=== PATIENT | female | born 1970 | race Caucasian/White ===

== ENCOUNTER → 2017-08-29 | Outpatient (CLI) | payer MEDICARE ==
[2017-08-29] MEDS: BARIUM SULFATE 60% 355 ML SUSP PO (08:45)
[2017-08-29] MEDS: SINCALIDE 1.95 MCG in IV NORMAL SALINE 50ML 30 ML IV (10:16)
== END | disposition home or self-care (01) ==
LOC: US 07:39
DX: R10.84 Generalized abdominal pain (principal); R11.2 Nausea with vomiting, unspecified; E78.5 Hyperlipidemia, unspecified; E03.9 Hypothyroidism, unspecified; G43.909 Migraine, unspecified, not intractable, without status migrainosus
CPT/HCPCS: 74250; 76700; 78226; 96374; 96375; A9537; J2805

== ENCOUNTER → 2020-05-03 | Outpatient (CLI) | payer MEDICARE ==
[2017-08-17 11:00] VITALS: BP 140/85
[~2020-05-03] MED LIST: AMOX500C PO; ASPI-482 PO; ATOR20TA58 PO; CELE200C PO; DICY10CA3 PO; FURO40TA4 PO; GABA800T5 PO; HALO10TA PO; HYDR-2767 PO; IOHEXOL 180 MG/ML 10 ML VIAL. ONE; L-NO1TBD6 PO; LACT1CAP6 PO; LEVO175T2 PO; LINZESS145 MCG PO; METR-34 PO; MONT10TA49 PO; NADO40TA2 PO; OMEP40CA45 PO; PANT20TA2 PO; PHEN37.5 PO; PHEN37.53 PO; QUET100T4 PO; TIZA4CAP PO; TRAM50TA PO; methylPREDNISolone ACETATE 40 MG/ML VIAL. ONE; methylPREDNISolone ACETATE 80 MG/ML VIAL. ONE
--- NOTE | 2020-05-03 12:39 | PDOC1 ---
INITIAL PAIN CONSULT DATE OF SERVICE: DOS: DATE: 05/03/20 TIME: 12:32 CHIEF COMPLAINT: Chief Complaint: Low back and right lower extremity pain HISTORY OF PRESENT ILLNESS: 49-year-old female presents with history of pain low back right lower extremity for about 16 years not the result of any specific injury or accident at that time but was helping a friend who had fallen get back up and pulled while bent over helping her friend and had significant pain increasing in the low back and into the right lower extremity posterior gluteus posterior thigh lateral thigh and anterior thigh as well as in the posterior calf patient reports has been about the same for the past 2 months after she picked up her friend. Patient reports she is test with stretching strength exercises has done multiple physical therapy programs over the years and had been swimming in her health club's pool but is closed now which was helping the pain. Patient reports now is constant sharp stabbing throbbing shooting with numbness and tingling radiating to right lower extremity with burning and aching in the low back itself. Is worse with standing walking changing positions better with sitting or laying down but awakens her 6-8 times at night from sleep patient reports it can affect her bowel bladder control she has urgency she is unable to feel the urgency but no actual incontinence patient reports it does impair her walking as well she is using a walker when she is at home does not have with her today. Patient has had multiple physical therapies as noted chiropractic treatment last 2 weeks and exercise she is doing currently all with only minimal decrease in pain. Patient rates her disability rating 0-10 10 being the worst is a 9-10 with him home responsibilities 10 with recreation social activity sexual behavior and life support activities. RI scan of the lumbar spine dated April 05, 2020 showing degenerative changes with severe right and moderate to severe left neuroforaminal narrowing L5-S1 slightly progressed since prior exam of 2016. PAST MEDICAL HISTORY: PMH: Dizziness, arthritis, hypothyroidism, anemia, urinary tract infections PREVIOUS SURGERIES: Past Surgical Hx: Carpal tunnel release bilaterally, ovarian cystectomy, arch surgery on the left foot CURRENT MEDICATIONS: Current Meds: Active Scripts Medications Dose Route/Sig Max Daily Dose Days Date Category Montelukast Sodium Tablet (Montelukast Sodium) 10 Mg Tablet 10 Mg PO HS 05/03/20 Reported Hydrocodone-Acetamin 10-325 mg (Hydrocodone/Acetaminophen) 1 Each Tablet 1 Each PO Q6HRS PRN 05/03/20 Reported Omeprazole 40 Mg Capsule.dr 1 Cap PO DAILY 05/03/20 Reported Linzess (Linaclotide) 145 Mcg Capsule 72 Mcg PO DAILY07 05/03/20 Reported Phentermine Hcl 37.5 Mg Capsule 1 Cap PO DAILYWBKFT 05/03/20 Reported Nadolol 40 Mg Tablet 1 Tab PO DAILY 05/03/20 Reported Loseasonique Tablet (I-Cwunewm-Vti Estr/Ethin Estra) 1 Each Tbdspk.3mo 1 Tab PO DAILY 30 05/03/20 Reported Celebrex (Celecoxib) 200 Mg Capsule 1 Cap PO DAILY 05/03/20 Reported Furosemide 40 Mg Tablet 1 Tab PO DAILY 08/15/17 Reported Seroquel (Quetiapine Fumarate) 100 Mg Tablet 1 Tab PO QHS 08/15/17 Reported Phentermine Hcl 37.5 Mg Tablet 1 Tab PO DAILY 08/15/17 Reported Aspir 81 (Aspirin) 81 Mg Tablet.dr 1 Tab PO DAILY 08/15/17 Reported Protonix (Pantoprazole Sodium) 20 Mg Tablet.dr 40 Mg PO DAILY 08/15/17 Reported Gabapentin 800 Mg Tablet 800 Mg PO QID 08/15/17 Reported Probiotic (Lactobacillus Acidophilus) 1 Each Capsule 1 Each PO BID 08/15/17 Reported Atorvastatin Calcium 20 Mg Tablet 1 Tab PO DAILY 08/15/17 Reported Tramadol Hcl 50 Mg Tablet 50 Mg PO QID 08/15/17 Reported Tizanidine Hcl 4 Mg Capsule 4 Mg PO QID 08/15/17 Reported Synthroid (Levothyroxine Sodium) 175 Mcg Tablet 1 Tab PO DAILY 08/15/17 Reported ALLERGIES; Allergies: Coded Allergies: No Known Drug Allergies (Unverified , 08/15/17) FAMILY HISTORY: Family Hx: Diverticulosis, degenerative disc disease, cancers, arthritis, tic douloureux, heart disease, Delmis-Danlos syndrome SOCIAL HISTORY: Social Hx: Patient drinks 1 glass of red wine about 3 days a week does not smoke quit many years ago does not use any illegal illicit recreational drugs is lives with her spouse lives locally in [facility] and is currently on disability. REVIEW OF SYSTEMS: ROS: Positive for those items mentioned in history of present illness, all systems are reviewed, otherwise negative, is complete full and well-documented on patient's chart. PHYSICAL EXAM: VS: Blood pressure is 140/63 pulse 67 respirations 18 temperature 99.1 F weight is 235 pounds PE: PHYSICAL EXAMINATION: GENERAL: The patient is awake, alert, oriented, appropriate, very pleasant demeanor HEENT: Shows normocephalic, atraumatic. Extraocular movements are intact and symmetrical. Oral cavity: Mucous membranes moist and pink. Dentition is intact. NECK: Shows anterior throat supple without palpable lymphadenopathy noted. Swallow reflex symmetrical. CHEST: Shows normal on inspection. Breath sounds are clear bilaterally, no rales rhonchi or wheezes auscultated. HEART: Shows S1, S2 clear. No murmurs auscultated. ABDOMEN: Soft, nontender, nondistended, obese. No palpable organomegaly is noted. No rebound or guarding demonstrated. BACK: Shows spine grossly in the midline. Normal-appearing cervical lordotic curvature. There is slightly increased thoracic kyphosis, some minor flattening of the lumbar lordotic curvature. Lumbar paraspinous muscles show symmetrical on inspection, on palpation shows some moderate tenderness diffusely throughout the upper, middle and lower distribution of the paraspinous muscles bilaterally and also into the lower thoracic paraspinous musculature, firm and tender, but without specific trigger points, without radiation of pain. The patient has good rotational motion of the lumbar spine, both laterally as well as extension and flexion without significant difficulty. No tenderness over the spinous processes, or sacrum, but mild tenderness over the left sacroiliac region. EXTREMITIES: Lower extremities show deep tendon reflexes 2+ in the patellar and tendo calcaneus tendons. Motor exam is 4 on a scale of 5 with right dorsiflexion, extension, quadriceps and hamstring flexion and 5/5 on the left. Peripheral pulses are 1+ posterior tibial. [] peripheral edema is noted bilaterally. Lower extremities are warm and dry to touch, equal in color and appearance. Straight leg raise noted to be positive on the right about 40-45 degrees, left side is negative. Gaenslen's and Artemio's maneuvers are negative bilaterally as well. The patient is able to stand, stand on her toes but loses balance very quickly putting all of her weight on her right leg walks with a shuffling gait does appear to favor her right lower extremity to a mild extent with ambulation, not use any assistive devices on her visit today. SKIN: Shows warm and dry, good turgor. No edema. No sores, rashes or bruising throughout. IMPRESSION: Impression: 49-year-old female with long history low back and now right lower extremity pain after an injury about 2 months ago. MRI scan lumbar spine as noted Arthritis Plan: Options were discussed with the patient including conservative medical management physical therapies and interventional techniques. And as she is currently doing physical therapy on her own stretching strengthening exercises and has been through physical therapy many times she is interested in i nterventional techniques. We discussed a lumbar epidural steroid injection using description as well as anatomical model to describe the procedure. Risks were discussed including but not limited to: Bleeding, infection, possibility of epidural hematoma and subsequent neurological compromise, dural puncture, headaches, spinal cord and/or nerve damage, side effects of steroid medication, and poor results regarding pain control. Patient understands wished to proceed. Patient will return to clinic in approximately 2 weeks for follow-up, was counseled as to return appointment activity level and side effects to be aware of. Procedure is lumbar epidural steroid injection under local anesthetic using sterile prep and drape at the L5-S1 level using C-arm fluoroscopic guidance in both AP and lateral views medications injected is 120 mg Depo-Medrol + 10 mL preservative-free normal saline and 2 mL contrast- condition at discharge is stable patient tolerated procedure well had no complications. JOEL DUFFY MD May 03, 2020 12:39
== END | disposition home or self-care (01) ==
LOC: PNCL 09:53
PROVIDERS: ATTEND Anesthesiology
DX: M48.061 Spinal stenosis, lumbar region without neurogenic claudication (principal); M54.5 Low back pain; M79.661 Pain in right lower leg; D64.9 Anemia, unspecified; M19.90 Unspecified osteoarthritis, unspecified site; E03.9 Hypothyroidism, unspecified; R42 Dizziness and giddiness; Z87.440 Personal history of urinary (tract) infections; Z98.890 Other specified postprocedural states; Z79.899 Other long term (current) drug therapy; Z79.82 Long term (current) use of aspirin; Z82.61 Family history of arthritis; Z82.49 Family history of ischemic heart disease and other diseases of the circulatory system
CPT/HCPCS: 62323; J1030; J1040; Q9965

== ENCOUNTER → 2020-05-17 | Outpatient (CLI) | payer MEDICARE ==
[2017-08-17 11:00] VITALS: BP 140/85
[~2020-05-17] MED LIST changes: +FOLI1TAB47 PO; +LACT20SO PO; +MIDO2.5T PO; +MIRA25TA PO; +MULT-166 PO; -OMEP40CA45 PO; +OMEP40CA7 PO; +PHOS250T3 PO; +SUMA100T4 PO; +[UNRECOGNIZED DRUG - OTHER]; +[UNRECOGNIZED DRUG - OTHER]; +[UNRECOGNIZED DRUG - OTHER]; +[UNRECOGNIZED DRUG - OTHER]; +[UNRECOGNIZED DRUG - REMARK]; +allertec PO
--- NOTE | 2020-05-17 10:57 | PDOC ---
Progress Note - Pain Clinic Date of Service: DOS: DATE: 05/17/20 TIME: 10:54 Diagnosis: Dx: Lumbar radiculopathy with lumbar degenerative disease and lumbar spinal stenosis History or Present Illness: HPI: 49-year-old female returns follow-up status post lumbar epidural steroid injection x1. Patient reports about 30% improvement in the low back and bilateral lower extremity somewhat worse on the left than the right. Patient reports still some significant pain in the low back and left lower extremity but the left leg is doing much better patient reports she is doing much better with distance walking doing household activities travel with greater ease and comfort and sleeping better at night patient reports the pain began to awaken her from sleep over the past few days still about every 3-4 hours. Patient rates her pain as an 8 on scale 10 is worse over the past week 7 on average 7 its least is a 7 today. Patient describes pain as aching and sharp dull tight shooting cramping and burning sometimes radiating into the lower extremities as well. Patient reports no new motor or sensory deficits no new bowel or bladder incontinence or other complaints. Physical Exam: VS: Blood pressure is 151/58 pulse 60 respirations 18 temperature 97.8 F height 5 3 inches weight is 234 pounds PE: PHYSICAL EXAMINATION: GENERAL: The patient is awake, alert, oriented, appropriate, very pleasant demeanor HEENT: Shows normocephalic, atraumatic. Extraocular movements are intact and symmetrical. NECK: Shows anterior throat supple without palpable lymphadenopathy noted. Swallow reflex symmetrical. CHEST: Shows normal on inspection. Breath sounds are clear bilaterally. HEART: Shows S1, S2 clear. No murmurs auscultated. ABDOMEN: Soft, nontender, nondistended, obese. No palpable organomegaly is noted. No rebound or guarding demonstrated. BACK: Shows spine grossly in the midline. Normal-appearing cervical lordotic curvature. There is slightly increased thoracic kyphosis, some minor flattening of the lumbar lordotic curvature. Lumbar paraspinous muscles show symmetrical on inspection, on palpation shows some moderate tenderness diffusely throughout the upper, middle and lower distribution of the paraspinous muscles without specific trigger points, without radiation of pain. The patient has good rotational motion of the lumbar spine, both laterally as well as extension and flexion without significant difficulty. No tenderness over the spinous processes, sacrum or sacroiliac regions. EXTREMITIES: Lower extremities show deep tendon reflexes 2+ in the patellar and tendo calcaneus tendons. Motor exam is 4 on a scale of 5 with right dorsiflexion, extension, quadriceps and hamstring flexion and 5/5 on the left. Peripheral pulses are 1+ posterior tibial. No peripheral edema is noted bilaterally. Lower extremities are warm and dry to touch, equal in color and appearance. SKIN: Shows warm and dry, good turgor. No edema. No sores, rashes or bruising throughout. Procedure: Procedure: Options discussed with the patient. Patient chart was reviewed as her current medication regimen updated current review of systems updated today as well. We will proceed with a second lumbar epidural steroid injection today with fluoro scopic guidance. Risks were discussed including but not limited to: Bleeding, infection, possibility of epidural hematoma and subsequent neurological compromise, dural puncture, headaches, spinal cord and/or nerve damage, side effects of steroid medication, and poor results regarding pain control. Patient understands wished to proceed. Patient will return to clinic in approximate 2 weeks for follow-up, was counseled as return appointment activity level and side effects to be aware of. Medication Injected: Med Injected: Procedure is lumbar epidural steroid injection under local anesthetic using rosario rile prep and drape at the L5-S1 level using C-arm fluoroscopic guidance in both AP and lateral views medications injected is 120 mg Depo-Medrol + 10 mL preservative-free normal saline and 2 mL contrast- condition at discharge is stable patient tolerated procedure well had no complications. Condition at Discharge: Condition at Discharge: Condition at discharge stable, patient tolerated procedure well and had no complications. JOEL DUFFY MD May 17, 2020 10:57
== END | disposition home or self-care (01) ==
LOC: PNCL 09:54
PROVIDERS: ATTEND Anesthesiology
DX: M51.16 Intervertebral disc disorders with radiculopathy, lumbar region (principal); M48.061 Spinal stenosis, lumbar region without neurogenic claudication; I11.0 Hypertensive heart disease with heart failure; I50.9 Heart failure, unspecified; E78.00 Pure hypercholesterolemia, unspecified; E66.9 Obesity, unspecified; K21.9 Gastro-esophageal reflux disease without esophagitis; M19.90 Unspecified osteoarthritis, unspecified site; E03.9 Hypothyroidism, unspecified; Z79.82 Long term (current) use of aspirin; Z79.899 Other long term (current) drug therapy; Z87.891 Personal history of nicotine dependence; Z98.890 Other specified postprocedural states
CPT/HCPCS: 62323; J1030; J1040; Q9965

== ENCOUNTER → 2021-02-28 | Outpatient (CLI) | payer MEDICARE ==
[2017-08-17 11:00] VITALS: BP 140/85
[~2021-02-28] MED LIST changes: -PHEN37.5 PO; +PHEN37.59 PO
--- NOTE | 2021-02-28 14:11 | PDOC ---
Progress Note - Pain Clinic Date of Service: DOS: DATE: 02/28/21 TIME: 14:07 Diagnosis: Dx: Lumbar to colopathy with lumbar degenerative disease and lumbar spinal stenosis History or Present Illness: HPI: 50-year-old female returns last seen May 17, 2020 status post lumbar epidural steroid injection x2 with about 60% improvement patient reports is lasted for several months of the pain is been returning now over the past 2 to 3 months in the low back and now is in the right lower extremity which is new is traditionally her left side was the painful side patient reports is aching sharp dull tight in the back shooting muscles feel that they are "ripping off" patient reports is tingling and burning cramping stabbing can be severe and unbearable at times with weightbearing standing walking. Initially she would do much better with distance walking doing household activities work activities sitting for greater periods try with greater ease and comfort as well. Patient reports no new motor or sensory deficits rates her pain as an 8-9 on scale 10 is worse over the past week 7 on average 5 its least is a 7 today. Patient reports no bowel or bladder incontinence. Patient reports fatigability of the right lower extremity but no full motor deficit. Physical Exam: VS: Blood pressure is 160/105 pulse 67 respirations 18 temperature is 99.4 F height is 5 feet 3 inches, weight is 236 pounds PE: PHYSICAL EXAMINATION: GENERAL: The patient is awake, alert, oriented, appropriate, very pleasant in demeanor HEENT: Shows normocephalic, atraumatic. Extraocular movements are intact and symmetrical. Oral cavity: Mucous membranes moist and pink. Dentition is intact. NECK: Shows anterior throat supple without palpable lymphadenopathy noted. Swallow reflex symmetrical. CHEST: Shows normal on inspection. Breath sounds are clear bilaterally, distant but no rales or rhonchi. HEART: Shows S1, S2 clear. No murmurs auscultated. ABDOMEN: Soft, nontender, nondistended, obese. No palpable organomegal 1+ y is noted. BACK: Shows spine grossly in the midline. Normal-appearing cervical lordotic curvature. There is increased thoracic kyphosis, some flattening of the lumbar lordotic curvature. Lumbar paraspinous muscles show symmetrical on inspection, on palpation shows some moderate tenderness diffusely throughout the upper, middle and lower distribution of the paraspinous muscles, but without specific trigger points, without radiation of pain. The patient has good rotational motion of the lumbar spine, both laterally as well as extension and flexion without significant difficulty. EXTREMITIES: Lower extremities show deep tendon reflexes 2+ in the patellar and tendo calcaneus tendons. Motor exam is 4 on a scale of 5 with right dorsiflexion, extension, quadriceps and hamstring flexion and 4/5 on the left. Peripheral pulses are 1+ posterior tibial. No peripheral edema is noted bilaterally. Lower extremities are warm and dry to touch, equal in color and appearance. SKIN: Shows warm and dry, good turgor. No edema. No sores, rashes or bruising throughout. Procedure: Procedure: Options were discussed with the patient. Patient chart reviews her current medication regimen updated current review of systems updated today as well. We will proceed with lumbar epidural steroid injection today with fluoroscopic guidance. Risks were discussed including but not limited to: Bleeding, infection, possibility of epidural hematoma and subsequent neurological compromise, dural puncture, headaches, spinal cord and/or nerve damage, side effects of steroid medication, and poor results regarding pain control. Patient understands and wished to proceed. Patient will return to clinic in approximately 2 weeks for follow-up, was counseled as to return appointment, activity level, and side effects to be aware of. Patient was encouraged to revisit her primary care physician regarding her blood pressure as the diastolic is elevated over 100 on 3 different measurements today. Patient understands and will follow up regarding her antihypertensives. Medication Injected: Med Injected: Procedure is lumbar epidural steroid injection under local anesthetic using sterile prep and drape at the L5-S1 level using C-arm fluoroscopic guidance in both AP and lateral views medications injected is 120 mg Depo-Medrol +10mL preservative-free normal saline and 2 mL contrast- condition at discharge is stable patient tolerated procedure well had no complications. Condition at Discharge: Condition at Discharge: Condition at discharge stable, patient tolerated procedure well and had no complications. JOEL DUFFY MD Feb 28, 2021 14:11
--- NOTE | 2021-02-28 14:12 | PDOC4 ---
Procedure Note: ICD 10 Code: ICD 10 Code: And five 4.17 M51.87 M4 8.07 Procedure Note: Patient was consented for lumbar epidural steroid injection with fluoroscopic guidance. Risks were discussed including but not limited to: Bleeding, infection, possibility of epidural hematoma and subsequent neurological compromise, dural puncture, headaches, spinal cord and/or nerve damage, side effects of steroid medication, and poor results regarding pain control. Patient understands and wished to proceed. Procedure is lumbar epidural steroid injection under local anesthetic using sterile prep and drape at the L5-S1 level using C-arm fluoroscopic guidance in both AP and lateral views medications injected is 120 mg Depo-Medrol +10mL preservative-free normal saline and 2 mL contrast- condition at discharge is stable patient tolerated procedure well had no complications. JOEL DUFFY MD Feb 28, 2021 14:12
== END | disposition home or self-care (01) ==
LOC: PNCL 13:37
PROVIDERS: ATTEND Anesthesiology
DX: M48.07 Spinal stenosis, lumbosacral region (principal); M51.87 Other intervertebral disc disorders, lumbosacral region; I11.0 Hypertensive heart disease with heart failure; I50.9 Heart failure, unspecified; E78.00 Pure hypercholesterolemia, unspecified; E66.9 Obesity, unspecified; K21.9 Gastro-esophageal reflux disease without esophagitis; M19.90 Unspecified osteoarthritis, unspecified site; E03.9 Hypothyroidism, unspecified; Z79.899 Other long term (current) drug therapy; Z98.890 Other specified postprocedural states; Z79.82 Long term (current) use of aspirin; Z87.891 Personal history of nicotine dependence
CPT/HCPCS: 62323; J1030; J1040; Q9965

== ENCOUNTER → 2021-03-21 | Outpatient (CLI) | payer MEDICARE ==
[2017-08-17 11:00] VITALS: BP 140/85
--- NOTE | 2021-03-21 13:43 | PDOC ---
Progress Note - Pain Clinic Date of Service: DOS: DATE: 03/21/21 TIME: 13:40 Diagnosis: Dx: Lumbar radiculopathy with lumbar degenerative disease and lumbar spinal stenosis History or Present Illness: HPI: 50-year-old female returns for follow-up status post lumbar epidural steroid injections last seen February 28, 2021, patient reports she did very well about 30% improvement overall initially much better but now the pain is returning and is in the left lower extremity and foot previously was in the right lower extremity on her last visit patient reports is rating the posterior gluteus posterior thigh and calf only on the left side patient points across the low back and is now an 8 on scale 10 is worse over the past week 6 on average for its least is a 5 today patient reports sharp and stabbing cramping burning radiating on and off in intensity worse with standing and walking worse with sitting or laying down for prolonged periods wakes her from sleep only very rarely. Patient reports no bowel or bladder incontinence and some fatigability with the left le but the right one is doing much better. Patient reports no loss of motor function, no bowel or bladder incontinence currently. Physical Exam: VS: Blood pressure is 125/75 pulse 70 respirations 18 temperature is 98.4 F height is 5 feet 3 inches weight is 234 pounds PE: PHYSICAL EXAMINATION: GENERAL: The patient is awake, alert, oriented, appropriate, very pleasant in demeanor HEENT: Shows normocephalic, atraumatic. Extraocular movements are intact and symmetrical. Oral cavity: Mucous membranes moist and pink. Dentition is intact. NECK: Shows anterior throat supple without palpable lymphadenopathy noted. Swallow reflex symmetrical. CHEST: Shows normal on inspection. Breath sounds are clear bilaterally, distant but no rales or rhonchi. HEART: Shows S1, S2 clear. No murmurs auscultated. ABDOMEN: Soft, nontender, nondistended, obese. No palpable organomegaly is noted. BACK: Shows spine grossly in the midline. Normal-appearing cervical lordotic curvature. There is slightly increased thoracic kyphosis, some minor flattening of the lumbar lordotic curvature. Lumbar paraspinous muscles show symmetrical on inspection, on palpation shows some moderate tenderness diffusely throughout the upper, middle and lower distribution of the paraspinous muscles without specific trigger points, without radiation of pain. The patient has good rotational motion of the lumbar spine, both laterally as well as extension and flexion without significant difficulty. No tenderness over the spinous processes, sacrum or sacroiliac regions. EXTREMITIES: Lower extremities show deep tendon reflexes 2+ in the patellar and tendo calcaneus tendons. Motor exam is full on a scale of 5 with right dorsi flexion, extension, quadriceps and hamstring flexion and 4/5 on the left. Peripheral pulses are 1+ posterior tibial. No peripheral edema is noted bilaterally. Lower extremities are warm and dry. SKIN: Shows warm and dry, good turgor. No edema. No sores, rashes or bruising throughout. Procedure: Procedure: Options were discussed with the patient. Patient chart reviews her current medication regimen updated current review of systems updated today as well. We will proceed with a lumbar epidural steroid injection today with fluoroscopic guidance. Risks were discussed including but not limited to: Bleeding, infection, possibility of epidural hematoma and subsequent neurological compromise, dural puncture, headaches, spinal cord and/or nerve damage, side effects of steroid medication, and poor results regarding pain control. Patient understands and wished to proceed. Patient will return to the clinic in approximately 2 weeks for follow-up, was counseled as return appointment, activity level, and side effect to be aware of. Medication Injected: Med Injected: Procedure is lumbar epidural steroid injection under local anesthetic using sterile prep and drape at the L5-S1 level using C-arm fluoroscopic guidance in both AP and lateral views medications injected is 120 mg Depo-Medrol +10mL preservative-free normal saline and 2 mL contrast- condition at discharge is stable patient tolerated procedure well had no complications. Condition at Discharge: Condition at Discharge: Condition at discharge is stable, patient tolerated procedure well and had no complications. JOEL DUFFY MD Mar 21, 2021 13:43
--- NOTE | 2021-03-21 13:46 | PDOC4 ---
Procedure Note: ICD 10 Code: ICD 10 Code: M54.17 M4 8.07 M51.87 Procedure Note: Patient was consented for lumbar epidural steroid injection with fluoroscopic guidance. Risks were discussed including but not limited to: Bleeding, infection, possibility of epidural hematoma and subsequent neurological compromise, dural puncture, headaches, spinal cord and/or nerve damage, side effects of steroid medication, and poor results regarding pain control. Patient understands and wished to proceed. Procedure is lumbar epidural steroid injection under local anesthetic using rosario rile prep and drape at the L5-S1 level using C-arm fluoroscopic guidance in both AP and lateral views medications injected is 120 mg Depo-Medrol +10mL preservative-free normal saline and 2 mL contrast- condition at discharge is stable patient tolerated procedure well had no complications. JOEL DUFFY MD Mar 21, 2021 13:46
== END | disposition home or self-care (01) ==
LOC: PNCL 13:14
PROVIDERS: ATTEND Anesthesiology
DX: M51.16 Intervertebral disc disorders with radiculopathy, lumbar region (principal); M48.061 Spinal stenosis, lumbar region without neurogenic claudication; I11.0 Hypertensive heart disease with heart failure; I50.9 Heart failure, unspecified; E78.00 Pure hypercholesterolemia, unspecified; K21.9 Gastro-esophageal reflux disease without esophagitis; M19.90 Unspecified osteoarthritis, unspecified site; E03.9 Hypothyroidism, unspecified; E66.9 Obesity, unspecified; Z87.891 Personal history of nicotine dependence; Z79.82 Long term (current) use of aspirin; Z79.899 Other long term (current) drug therapy; Z98.890 Other specified postprocedural states
CPT/HCPCS: 62323; J1030; J1040; Q9965

== ENCOUNTER → 2021-04-04 | Outpatient (CLI) | payer MEDICARE ==
[2017-08-17 11:00] VITALS: BP 140/85
--- NOTE | 2021-04-04 13:38 | PDOC ---
Progress Note - Pain Clinic Date of Service: DOS: DATE: 04/04/21 TIME: 13:35 Diagnosis: Dx: Lumbar radiculopathy with lumbar degenerative disease and lumbar spinal stenosis History or Present Illness: HPI: 50-year-old female returns for follow-up status post lumbar epidural steroid injection March 21, 2021. Patient reports she did very well with about 30% overall improvement in the low back and bilateral lower extremity pain more on the left than the right, patient reports worse with walking standing changing positions better with sitting or laying down patient reports pain is aching sharp in the back tight and shooting can be cramping and stabbing as well as burning and radiating into the left lower extremity posterior gluteus posterior lateral thigh posterior calf better and not radiating as far as it did previously but still present patient reports new pain in the mid upper back as well between the shoulder blades which is becoming more burning searing pain since her last visit. Patient reports pain is a 9 on scale 10 is worse over the past week 5-6 on average 5 its least is a 6 today. Patient reports no new motor or sensory deficits initially was doing much better distance walking doing household activities try with greater ease and sleeping better now is waking her from sleep about 5 hours. Patient reports no new bowel or bladder incontinence. Physical Exam: VS: Blood pressure is 155/104 pulse 69 respirations are 18 temperature 98.2 F height is 5 feet 3 inches weight 236 pounds PE: PHYSICAL EXAMINATION: GENERAL: The patient is awake, alert, oriented, appropriate, very pleasant in demeanor HEENT: Shows normocephalic, atraumatic. Extraocular movements are intact and symmetrical. Oral cavity: Mucous membranes moist and pink. Dentition is intact. NECK: Shows anterior throat supple without palpable lymphadenopathy noted. Swallow reflex symmetrical. CHEST: Shows normal on inspection. Breath sounds are clear bilaterally, coarse but no rales or rhonchi. HEART: Shows S1, S2 clear. No murmurs auscultated. ABDOMEN: Soft, nontender, nondistended, obese. No palpable organomegaly is noted. BACK: Shows spine grossly in the midline. Normal-appearing cervical lordotic curvature. There is slightly increased thoracic kyphosis, some minor flattening of the lumbar lordotic curvature. Lumbar paraspinous muscles show symmetrical on inspection, on palpation shows some moderate tenderness diffusely throughout the upper, middle and lower distribution of the paraspinous muscles without specific trigger points, without radiation of pain. The patient has good rotational motion of the lumbar spine, both laterally as well as extension and flexion without significant difficulty. No tenderness over the spinous processes, sacrum or sacroiliac regions. EXTREMITIES: Lower extremities show deep tendon reflexes 2 in the patellar and tendo calcaneus tendons. Motor exam is 4 on a scale of 5 with right dorsiflexion, extension, quadriceps and hamstring flexion and 4/5 on the left. Peripheral pulses are 1 posterior tibial. No peripheral edema is noted bilaterally. Lower extremities are warm and dry. SKIN: Shows warm and dry, good turgor. No edema. No sores, rashes or bruising throughout. Procedure: Procedure: Options were discussed with patient. Patient chart reviews her current medication regimen updated current review of systems updated today as well. We will proceed with a lumbar epidural steroid injection today with fluoroscopic guidance. Risks were discussed including but not limited to: Bleeding, infection, possibility of epidural hematoma and subsequent neurological comprom ise, dural puncture, headaches, spinal cord and/or nerve damage, side effects of steroid medication, and poor results regarding pain control. Patient understands and wished to proceed. Patient will return to the clinic in approximately 2 weeks for follow-up, was counseled as to return appointment, Activella, and side effect to be aware of. Medication Injected: Med Injected: Procedure is lumbar epidural steroid injection under local anesthetic using sterile prep and drape at the L5-S1 level using C-arm fluoroscopic guidance in both AP and lateral views medications injected is 120 mg Depo-Medrol +10mL preservative-free normal saline and 2 mL contrast- condition at discharge is stable patient tolerated procedure well had no complications. Condition at Discharge: Condition at Discharge: Condition at discharge stable, patient tolerated procedure well and had no complications. JOEL DUFFY MD Apr 04, 2021 13:38
--- NOTE | 2021-04-04 13:38 | PDOC4 ---
Procedure Note: ICD 10 Code: ICD 10 Code: M54.17 M51.87 M4 8.07 Procedure Note: Patient was consented for lumbar epidural steroid injection with fluoroscopic guidance. Risks were discussed including but not limited to: Bleeding, infection, possibility of epidural hematoma and subsequent neurological compromise, dural puncture, headaches, spinal cord and/or nerve damage, side effects of steroid medication, and poor results regarding pain control. Patient understands and wished to proceed. Procedure is lumbar epidural steroid injection under local anesthetic using rosario rile prep and drape at the L5-S1 level using C-arm fluoroscopic guidance in both AP and lateral views medications injected is 120 mg Depo-Medrol +10mL preservative-free normal saline and 2 mL contrast- condition at discharge is stable patient tolerated procedure well had no complications. JOEL DUFFY MD Apr 04, 2021 13:38
== END | disposition home or self-care (01) ==
LOC: PNCL 13:06
PROVIDERS: ATTEND Anesthesiology
DX: M51.16 Intervertebral disc disorders with radiculopathy, lumbar region (principal); M48.061 Spinal stenosis, lumbar region without neurogenic claudication; I11.0 Hypertensive heart disease with heart failure; I50.9 Heart failure, unspecified; E78.00 Pure hypercholesterolemia, unspecified; M19.90 Unspecified osteoarthritis, unspecified site; E03.9 Hypothyroidism, unspecified; E66.9 Obesity, unspecified; K21.9 Gastro-esophageal reflux disease without esophagitis; Z87.891 Personal history of nicotine dependence; Z79.82 Long term (current) use of aspirin; Z79.899 Other long term (current) drug therapy; Z98.890 Other specified postprocedural states
CPT/HCPCS: 62323; J1030; J1040; Q9965